=== PATIENT | male | born 1985 | race African-American/Black ===

== ENCOUNTER 2022-10-08 11:37 | Emergency (ER) | payer MEDICAID, OTHER ==
[~2022-10-08] VITALS: Ht 182.9 cm; Wt 88.0 kg
[2022-10-08 11:39] VITALS: BP 136/90
[2022-10-08] MEDS ORDERED: KETOROLAC 60MG/2ML VIAL IM STA (17:19)
== END 2022-10-08 18:43 | disposition home or self-care (01) ==
LOC: ER 11:37
DX: M79.662 Pain in left lower leg (principal); I10 Essential (primary) hypertension; F41.9 Anxiety disorder, unspecified; F10.10 Alcohol abuse, uncomplicated; Y90.9 Presence of alcohol in blood, level not specified; Z87.81 Personal history of (healed) traumatic fracture
CPT/HCPCS: 96372; 99283; J1885; Z7610